=== PATIENT | female | born 1960 | race African-American/Black ===

== ENCOUNTER 2017-06-26 19:20 | Emergency (ER) | payer BC, OTHER ==
--- NOTE | 2017-06-26 20:00 | PDOC ---
Rapid Medical Evaluation Time Seen by Provider: 06/26/17 19:54 Medical Evaluation: Allergies Allergy/AdvReac Type Severity Reaction Status Date / Time No Known Allergies Allergy Verified 07/04/13 17:50 06/26/17 19:55 I have performed a brief in-person evaluation of this patient. The patient presents with a chief complaint of: syncope this morning at work at 11:30 am, HR 120s at the time, denies trauma to head Pertinent physical exam findings: well appearing, tachy to 120-130s, neurologically intact I have ordered the following: labs, cxr, ekg The patient will proceed to the ED for further evaluation. Discharge Disposition - Diagnosis Syncope - Referrals - Patient Instructions - Post Discharge Activity
[2017-06-26 20:02] VITALS: BP 119/64; PULSE 125; TEMP 97.4; BMI 39.1
[2017-06-26 20:40] LABS: BASO % 0.3 % (0-2.0); EOS % 0.2 % (0-4.5); HEMATOCRIT 44.8 % (32.4-45.2); HEMOGLOBIN 14.8 GM/dL (10.7-15.3); MCH 30.6 pg (25.7-33.7); MCHC 33.1 g/dl (32.0-36.0); MEAN CELL VOLUME 92.3 fl (80-96); MEAN PLT VOLUME 8.3 fl (7.5-11.1); MONO % 5.8 % (3.8-10.2); NEUT % 82.7 % (42.8-82.8); PLATELET COUNT 232 K/MM3 (134-434); RBC 4.85 M/mm3 (3.60-5.2); RDW 15.5 % (11.6-15.6); WHITE BLOOD COUNT 10.7 K/mm3 (4.0-10.0)
--- NOTE | 2017-06-26 20:43 | PDOC ---
History of Present Illness - General History Source: Patient <Lynda Zapienan - Last Filed: 06/26/17 23:16> - General History Source: Patient, Old Records Exam Limitations: No Limitations - History of Present Illness Initial Comments: 06/26/17 21:38 Patient is a 57 year old female with a significant past medical history of sarcoid, HTN, borderline DM,, who presents to the ED with complaints of syncopal episodes that occurred this morning. Patient reports experiencing 1 episode of syncope this morning while at work prompting her to come into the ED for further evaluation. She reports getting up to walk when she suddenly began to experience lightheadedness, and dizziness causing her to fall backwards onto her buttocks.Patient reports experiencing loss of consciousness as well has hitting her head but currently state she is not experiencing any head pain. She reports experiencing similar symptoms 4 months ago when she began to take 60 mg of prednisone. Patient reports experiencing tail bone pain secondary to fall. Denies chest pain, sob. Denies nausea, vomiting. Denies contact with sick individuals, out of state travelling. Denies change in vision, slurred speech. Denies any other symptoms. Allergies: Codeine Social history: No smoking. No alcohol. No illicit drugs. Surgical history: None PMD: Dr. Griffiths <Harvinder Vargas - Last Filed: 06/27/17 02:08> - General Chief Complaint: Syncope/Near Syncope Stated Complaint: SYNCOPE/NEAR SYNCOPE Time Seen by Provider: 06/26/17 19:54 Past History - Past Medical History COPD: No Diabetes: Yes HTN: Yes Seizures: Yes - Suicide/Smoking/Psychosocial Hx Smoking History: Never smoked Have you smoked in the past 12 months: No Information on smoking cessation initiated: No Hx Alcohol Use: No Drug/Substance Use Hx: No Substance Use Type: None <Franko Zapien - Last Filed: 06/26/17 23:16> <Harvinder Vargas - Last Filed: 06/27/17 02:08> - Past Medical History Allergies/Adverse Reactions: Allergies Allergy/AdvReac Type Severity Reaction Status Date / Time No Known Allergies Allergy Verified 06/26/17 20:02 Home Medications: Ambulatory Orders Levothyroxine [Synthroid -] 50 mcg PO DAILY 07/04/13 metFORMIN HCL [Glucophage -] 500 mg PO DAILY 07/04/13 levoFLOXacin [Levaquin -] 500 mg PO DAILY #7 tablet 07/05/13 Review of Systems - Review of Systems Able to Perform ROS?: Yes Comments:: 06/26/17 21:38 CONSTITUTIONAL: +Loss of consciousness. +Lightheadedness.+dizziness. Absent: fever, no chills, no fatigue EYES: Absent: visual changes ENT: Absent: ear pain, no sore throat CARDIOVASCULAR: Absent: chest pain, no palpitations RESPIRATORY: Absent: cough, no SOB GI: Absent: abdominal pain, no nausea, no vomiting, no constipation, no diarrhea GENITOURINARY: Absent: dysuria, no frequency, no hematuria MUSCULOSKELETAL: Absent: back pain, no arthralgia, no myalgia SKIN: Absent: rash <Harvinder Vargas - Last Filed: 06/27/17 02:08> *Physical Exam - Vital Signs Last Vital Signs Temp Pulse Resp BP Pulse Ox 97.4 F L 125 H 18 119/64 98 06/26/17 19:56 06/26/17 19:56 06/26/17 19:56 06/26/17 19:56 06/26/17 19:56 <Franko Zapien - Last Filed: 06/26/17 23:16> - Vital Signs Last Vital Signs Temp Pulse Resp BP Pulse Ox 97.4 F L 125 H 18 119/64 98 06/26/17 19:56 06/26/17 19:56 06/26/17 19:56 06/26/17 19:56 06/26/17 19:56 - Physical Exam Comments: 06/26/17 21:38 GENERAL: Well-appearing, well-nourished. No apparent distress. HEENT: Normocephalic, atraumatic. PERRL, EOM intact. CARDIOVASCULAR: Normal S1, S2. Regular rate and rhythm. PULMONARY: Clear to auscultation bilaterally. ABDOMEN: Soft, non-distended, non-tender. EXTREMITIES: Normal ROM in all four extremities. No gross deformities. SKIN: Warm, dry. No rash NEUROLOGICAL: No focal neurological deficits. <Harvinder Vargas - Last Filed: 06/27/17 02:08> Heart Score/ECG Review - ECG Intrepretation Comment:: 06/27/17 02:07 Sinus tachycardia Rigth atrial enlargment ST & T wave abnormality, consider anterior ischemia Abnormal ECG Vent. rate 102 bpm HI interval 154 ms QRS duration 84 ms <Harvinder Vargas - Last Filed: 06/27/17 02:08> ED Treatment Course - LABORATORY CBC & Chemistry Diagram: 06/26/17 20:31 06/26/17 22:31 - ADDITIONAL ORDERS Additional order review: 06/26/17 20:31 RBC 4.85 MCV 92.3 MCHC 33.1 RDW 15.5 MPV 8.3 D Neutrophils % 82.7 D Lymphocytes % 11.0 D Monocytes % 5.8 Eosinophils % 0.2 D Basophils % 0.3 <Franko Zapien - Last Filed: 06/26/17 23:16> - LABORATORY CBC & Chemistry Diagram: 06/26/17 20:31 06/26/17 22:31 - ADDITIONAL ORDERS Additional order review: Laboratory Results 06/26/17 06/26/17 20:31 20:31 Sodium Cancelled Potassium Cancelled Chloride Cancelled Carbon Dioxide Cancelled Anion Gap Cancelled BUN Cancelled Creatinine Cancelled Creat Clearance w eGFR Cancelled Random Glucose Cancelled Calcium Cancelled Magnesium Cancelled Total Bilirubin Cancelled AST Cancelled ALT Cancelled Alkaline Phosphatase Cancelled Creatine Kinase Cancelled Troponin I Cancelled Total Protein Cancelled Albumin Cancelled 06/26/17 20:31 RBC 4.85 MCV 92.3 MCHC 33.1 RDW 15.5 MPV 8.3 D Neutrophils % 82.7 D Lymphocytes % 11.0 D Monocytes % 5.8 Eosinophils % 0.2 D Basophils % 0.3 <Harvinder Vargas - Last Filed: 06/27/17 02:08> *DC/Admit/Observation/Transfer - Discharge Dispostion Admit: No <Franko Zapien - Last Filed: 06/26/17 23:16> - Attestations Scribe Attestion: 06/26/17 21:39 Documentation prepared by Harvinder Vargas, acting as medical coding technician for Franko Zapien MD/DO. <Harvinder Vargas - Last Filed: 06/27/17 02:08> Diagnosis at time of Disposition: Syncope - Discharge Dispostion Disposition: HOME Condition at time of disposition: Stable - Referrals Referrals: Jose Griffiths [Primary Care Provider] - Duncan Chen MD [Staff Physician] - - Patient Instructions Printed Discharge Instructions: DI for Syncope in Adults (Fainting) Additional Instructions: Please follow your primary care doctor for re-evaluation. You can also follow ujp with the management supervisor referred to you if symptoms persist - Post Discharge Activity
[2017-06-26 20:53] LABS: INR 0.96 (0.82-1.09); PROTHROMBIN TIME (PATIENT) 10.8 SEC (9.98-11.88)
[2017-06-26 23:06] LABS: ANION GAP 6 (8-16); BILIRUBIN,TOTAL 0.2 mg/dL (0.2-1.0); BLOOD UREA NITROGEN 25 mg/dL (7-18); CALCIUM 8.3 mg/dL (8.5-10.1); CHLORIDE 107 mmol/L (98-107); CO2 30 mmol/L (21-32); GLUCOSE,RANDOM 173 mg/dL (74-106); POTASSIUM 4.1 mmol/L (3.5-5.1); SGOT/AST 16 U/L (15-37); SGPT/ALT 40 U/L (12-78); SODIUM 143 mmol/L (136-145); TOT PROT 6.3 g/dl (6.4-8.2)
[2017-06-26 23:08] LABS: ALK PHOS 86 U/L (45-117)
--- NOTE | 2017-06-27 10:09 | EKG ---
Test Reason : Blood Pressure : / mmHG Vent. Rate : 102 BPM Atrial Rate : 102 BPM P-R Int : 154 ms QRS Dur : 084 ms QT Int : 340 ms P-R-T Axes : 069 088 036 degrees QTc Int : 443 ms SINUS TACHYCARDIA RIGHT ATRIAL ENLARGEMENT ABNORMAL ECG WHEN COMPARED WITH ECG OF 04-JUL-2013 17:37, ST NOW DEPRESSED IN ANTERIOR LEADS Confirmed by PAUL MAYO MD ([id number]) on 06/27/2017 10:09:21 AM Referred By: Confirmed By:PAUL MAYO MD
== END 2017-06-26 23:30 | disposition home or self-care (01) ==
LOC: JER 19:20
DX: R55 Syncope and collapse (principal); I10 Essential (primary) hypertension; E11.9 Type 2 diabetes mellitus without complications; Z79.84 Long term (current) use of oral hypoglycemic drugs; E03.9 Hypothyroidism, unspecified
CPT/HCPCS: 36415; 70450-TC; 71046-TC-FY; 80053; 82550; 84484; 85025; 85610; 93005; 93010; 99281-25

== ENCOUNTER 2018-08-10 23:19 | Emergency (ER) | payer BC, OTHER ==
[2018-08-10 23:37] VITALS: PULSE 98; TEMP 98.7; BMI 37.5
--- NOTE | 2018-08-11 00:20 | PDOC ---
History of Present Illness - General Chief Complaint: Lightheaded Stated Complaint: Blood Pressure Problem History Source: Patient Exam Limitations: No Limitations - History of Present Illness Initial Comments: 08/11/18 00:19 Patient is a 57 year old female with a significant past medical history of DM, sarcoid leading to pulmonary hypertension in [facility], leading to chronic hypotension presents to the ED for 1 episode of hypotension. Pt states after walking up a flight of stairs she become weak, checked her BP and noted to be 70s/40s. Pt currently asymptomatic, BP on arrival 120s/60s. Of note, pt is on continuous remodulin through a port placed by herself and changed every 6 weeks. Pt states the port is indurated and painful. Denies recent illness, recent travel, F/C/N/V, CP, SOB, abdominal pain Past History - Past Medical History Allergies/Adverse Reactions: Allergies Allergy/AdvReac Type Severity Reaction Status Date / Time No Known Allergies Allergy Verified 08/10/18 23:37 Home Medications: Ambulatory Orders Levothyroxine [Synthroid -] 50 mcg PO DAILY 07/04/13 metFORMIN HCL [Glucophage -] 500 mg PO DAILY 07/04/13 levoFLOXacin [Levaquin -] 500 mg PO DAILY #7 tablet 07/05/13 COPD: No Diabetes: Yes HTN: Yes Seizures: Yes - Suicide/Smoking/Psychosocial Hx Smoking History: Never smoked Have you smoked in the past 12 months: No Information on smoking cessation initiated: No Hx Alcohol Use: No Drug/Substance Use Hx: No Substance Use Type: None Review of Systems - Review of Systems Constitutional: No: Chills, Fever HEENTM: No: Blurred Vision, Double Vision Respiratory: No: Shortness of Breath Cardiac (ROS): No: Chest Pain, Edema, Palpitations ABD/GI: No: Constipated, Diarrhea, Nausea, Vomiting : No: Burning, Dysuria, Frequency, Flank Pain, Hematuria Musculoskeletal: No: Back Pain Integumentary: Yes: Other (induration around catheter site). No: Rash Neurological: No: Headache, Numbness, Tingling, Weakness, Unsteady Gait, Ataxia *Physical Exam - Vital Signs Last Vital Signs Temp Pulse Resp BP Pulse Ox 98.7 F 98 H 16 123/71 98 08/10/18 23:19 08/10/18 23:19 08/10/18 23:19 08/10/18 23:19 08/10/18 23:19 - Physical Exam General Appearance: Yes: Nourished, Appropriately Dressed. No: Apparent Distress HEENT: positive: EOMI, RELL, Normal Voice, Hearing Grossly Normal Neck: positive: Supple. negative: Carotid bruit Respiratory/Chest: positive: Lungs Clear, Normal Breath Sounds. negative: Accessory Muscle Use, Rapid RR, Crackles, Rales, Rhonchi, Stridor, Wheezing Cardiovascular: positive: Regular Rhythm, Regular Rate, S1, S2. negative: Edema , JVD, Murmur Vascular Pulses: Dorsalis-Pedis (R): 4+, Doralis-Pedis (L): 4+ Gastrointestinal/Abdominal: positive: Flat, Soft, Tenderness (admits to tenderness directly next to catheter site). negative: Pulsatile Mass, Protuberent, Distended, Guarding, Rebound Musculoskeletal: positive: Normal Inspection. negative: CVA Tenderness Extremity: positive: Normal Capillary Refill, Normal Inspection, Normal Range of Motion Integumentary: positive: Normal Color, Dry, Warm, Other (no redness, swelling or drainage from area around catheter site. 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 Pt states after walking up a flight of stairs she become weak, checked her BP and noted to be 70s/40s. Pt currently asymptomatic, BP on arrival 120s/60s. Of note, pt is on continuous remodulin through a port placed by herself and changed every 6 weeks. Pt states the port is indurated and painful. Denies recent illness, recent travel, F/C/N/V, CP, SOB, abdominal pain vitals wnl including multiple repeated BP in the 120s/60-70 Pt states she is asymptomatic and completely at baseline EKG show NSR without change from last documented EKG Pt states catheter should be changed every 6 weeks, last changed 5 weeks ago. States she will change catheter when she gets home to prevent infection Discussed methods to increase bp when found to be low while ambulance is on the way such as lying flat and raising legs up Shared decision making made with pt on comfort of safely being dc, agrees she feels well and is safe to go home. Will f/u with pcp and specialists *DC/Admit/Observation/Transfer Diagnosis at time of Disposition: Hypotension - Discharge Dispostion Disposition: HOME Condition at time of disposition: Fair Decision to Admit order: No - Referrals Referrals: Jose Griffiths [Primary Care Provider] - - Patient Instructions Printed Discharge Instructions: DI for Hypotension Additional Instructions: Please see your primary doctor within the next 48 hours. Continue taking all your home dosed medications as prescribed. Return to the ER for new or concerning symptoms including but not limited to: chest pain, shortness of breath, loss of consciousness, high fevers. Thank you - Post Discharge Activity
[2018-08-11 01:28] VITALS: BP 116/79
--- NOTE | 2018-08-11 01:49 | PDOC ---
Documentation entered by Silvia Amor SCRIBE, acting as scribe for Lizet Rolle MD. Lizet Rolle MD: This documentation has been prepared by the [facility], SCRIBE, under my direction and personally reviewed by me in its entirety. I confirm that the documentation accurately reflects all work, treatment, procedures, and medical decision making performed by me. Attending Attestation - Resident Resident Name: Cj Arteaga - ED Attending Attestation I have performed the following: I have examined & evaluated the patient, The case was reviewed & discussed with the resident, I agree w/resident's findings & plan - HPI HPI: 08/11/18 00:34 The patient is a 58YOF with a PMH of sarcoidosis on remodulin, DM, pulmonary HTN who presents to the ER for an episode of hypotension. She reports walking up a couple of steps and subsequently measured her blood pressure which was in the 70s, and was concerned as she typically runs in the 90s. She is also complaining of pain around her port site, which she changes every 6 weeks. Allergies: NKDA - Physicial Exam PE: 08/11/18 00:56 58 yo female has a history of sarcoidosis and pulmonary hypertension and today had an episode of feeling weak and her systolic blood pressure was in the 70s. she does have a continuous port for REMODULIN that helps regulate her blood pressure. Her blood pressure on arrival was normal -she denies any chest pain -she feels that she may need to change her port @ week 5 because the last time this happened her port needed changing 08/11/18 01:44 wnwd 58 yo female seated comfortably on gurney head ncat neck supple lungs cta b/l cvs [id number] abd no rebound, no guarding , there is a port on her mid abdomen ,no purulence noted no cva tenderness skin warm and dry neuro axox3,ambulatory - Medical Decision Making 08/11/18 01:46 ekg is unchanged from her prior ekg in 2018, it showed inverted T waves in anterior leads 08/11/18 01:48 the pt came because her blood pressure was low at home but during the pt;s ED stay her BP was normal pt will follow up with her sarcoidosis specialist at [place]
--- NOTE | 2018-08-11 13:32 | EKG ---
Test Reason : Blood Pressure : / mmHG Vent. Rate : 086 BPM Atrial Rate : 086 BPM P-R Int : 162 ms QRS Dur : 084 ms QT Int : 398 ms P-R-T Axes : 068 094 054 degrees QTc Int : 476 ms NORMAL SINUS RHYTHM RIGHT ATRIAL ENLARGEMENT RIGHTWARD AXIS T WAVE ABNORMALITY, CONSIDER ANTERIOR ISCHEMIA PROLONGED QT ABNORMAL ECG WHEN COMPARED WITH ECG OF 26-JUN-2017 20:01, NO SIGNIFICANT CHANGE WAS FOUND Confirmed by MD BRIE, ABIOLA ([id number]) on 08/11/2018 1:32:22 PM Referred By: Iris PARKS Confirmed By:ABIOLA BAIRD MD
== END 2018-08-11 01:28 | disposition home or self-care (01) ==
LOC: JER 23:19
DX: I95.9 Hypotension, unspecified (principal); E11.9 Type 2 diabetes mellitus without complications; Z79.4 Long term (current) use of insulin; E03.9 Hypothyroidism, unspecified; G40.909 Epilepsy, unspecified, not intractable, without status epilepticus
CPT/HCPCS: 93005; 93010; 99282-25

== ENCOUNTER 2021-01-03 09:56 | Emergency (ER) | payer BC, OTHER ==
[2021-01-03 10:11] VITALS: TEMP 98.4; BMI 37.5
[2021-01-03] MEDS ORDERED: ACETAMINOPHEN 1000 MG/100 ML VIAL IVPB ONE (10:28)
[2021-01-03] MEDS ORDERED: ACETAMINOPHEN INJECTION 100 ML IVPB ONE (10:32)
[2021-01-03 11:36] LABS: EOS % 3.4 % (0-4.5); HEMATOCRIT 40.4 % (32.4-45.2); HEMOGLOBIN 13.8 GM/dL (10.7-15.3); LYMPH % 26.9 % (8-40); MCH 30.6 pg (25.7-33.7); MCHC 34.1 g/dl (32.0-36.0); MEAN CELL VOLUME 89.9 fl (80-96); MEAN PLT VOLUME 9.3 fl (7.5-11.1); MONO % 9.8 % (3.8-10.2); NEUT % 58.9 % (42.8-82.8); PLATELET COUNT 186 10^3/uL (134-434); RDW 16.4 % (11.6-15.6); WHITE BLOOD COUNT 4.7 K/mm3 (4.0-10.0)
[2021-01-03 17:00] LABS: CALCIUM 8.5 mg/dL (8.5-10.1)
[2021-01-03 17:01] LABS: BLOOD UREA NITROGEN 17.2 mg/dL (7-18)
[2021-01-03 17:04] LABS: CREATININE 0.9 mg/dL (0.55-1.3)
[2021-01-03 17:05] LABS: BILIRUBIN,TOTAL 0.7 mg/dL (0.2-1); TOT PROT 7.8 g/dl (6.4-8.2)
[2021-01-03 17:07] VITALS: BP 154/119; PULSE 93
[2021-01-03 17:14] LABS: ALBUMIN 3.3 g/dl (3.4-5.0)
== END 2021-01-03 17:52 | disposition home or self-care (01) ==
LOC: JER 09:56
PROC: 3E0333Z Introduction of Anti-inflammatory into Peripheral Vein, Percutaneous Approach (ICD-10-PCS; principal; 2021-01-03)
DX: R10.13 Epigastric pain (principal)
CPT/HCPCS: 36415; 71046-TC-FY; 74177-TC; 80053; 82550; 84484; 85025; 93308; 99285-25; J0131; Q9967

== ENCOUNTER 2023-01-14 15:24 | Inpatient (IN) | payer BC, OTHER ==
[2023-01-14 15:47] VITALS: BMI 33.6
[2023-01-14] MEDS ORDERED: FUROSEMIDE 40 MG/4 ML INJECTABLE VIAL IVPUSH ONE (16:58)
[2023-01-14 19:30] LABS: BASO % 0.6 % (0-2.0); EOS % 0.3 % (0-4.5); HEMATOCRIT 50.5 % (32.4-45.2); HEMOGLOBIN 16.9 GM/dL (10.7-15.3); LYMPH % 15.1 % (8-40); MCH 30.6 pg (25.7-33.7); MCHC 33.4 g/dl (32.0-36.0); MEAN CELL VOLUME 91.7 fl (80-96); MONO % 10.6 % (3.8-10.2); NEUT % 73.4 % (42.8-82.8); PLATELET COUNT 121 10^3/uL (134-434); RBC 5.51 M/mm3 (3.60-5.2); WHITE BLOOD COUNT 7.6 K/mm3 (4.0-10.0)
[2023-01-14 19:37] LABS: INR 1.27 (0.83-1.09); PROTHROMBIN TIME (PATIENT) 14.7 SEC (9.7-13.0)
[2023-01-14 19:39] LABS: ACTIVATED PTT 25.1 SECONDS (25.2-36.5)
[2023-01-14 20:14] LABS: CHLORIDE 96 mmol/L (98-107); POTASSIUM 4.8 mmol/L (3.5-5.1); SODIUM 136 mmol/L (136-145)
[2023-01-14 20:17] LABS: ALBUMIN 3.2 g/dl (3.4-5.0); ANION GAP 13 mmol/L (4-13); CO2 28 mmol/L (21-32); GLUCOSE,RANDOM 108 mg/dL (74-106); MAGNESIUM 2.2 mg/dL (1.8-2.4)
[2023-01-14 20:19] LABS: PHOSPHOROUS 2.8 mg/dL (2.5-4.9)
[2023-01-14 20:20] LABS: CREATININE 1.3 mg/dL (0.55-1.3); SGOT/AST 63 U/L (15-37); SGPT/ALT 49 U/L (13-61)
[2023-01-14 20:21] LABS: BILIRUBIN,TOTAL 2.6 mg/dL (0.2-1); TOT PROT 5.8 g/dl (6.4-8.2)
[2023-01-14 20:22] LABS: ALK PHOS 97 U/L (45-117)
[2023-01-14 20:24] LABS: N-TERMINAL BNP 5640.2 pg/ml (5-125)
[2023-01-14 22:03] VITALS: BP 90/67; PULSE 98; RESP 20; TEMP 91.4
== END 2023-01-15 01:17 | disposition left against medical advice (07) | DRG 948 ==
LOC: JER 15:24 → JERBED 20:04
PROVIDERS: ADMIT Internal Medicine; ATTEND Internal Medicine
DX: R41.82 Altered mental status, unspecified (principal); F15.959 Other stimulant use, unspecified with stimulant-induced psychotic disorder, unspecified; R79.89 Other specified abnormal findings of blood chemistry; E11.9 Type 2 diabetes mellitus without complications
CPT/HCPCS: 36415; 70450-TC; 71045-TC-FY; 80053; 80307; 83735; 83880; 84100; 84484; 85025; 85610; 85730; 93005; 93010; 99285-25